=== PATIENT | male | born 1945 | race Caucasian/White ===

== ENCOUNTER 2023-09-07 03:17 | Emergency (ER) | payer OTHER, MEDICARE ==
[~2023-09-07] VITALS: Ht 172.7 cm; Wt 129.6 kg
[~2023-09-07 03:17] MED LIST: ASPI-1071 PO; ATOR20TA66 PO; LISI20TA28 PO; LOP25T PO; OMEP20CA15 PO
[2023-09-07 04:19] LABS: ALBUMIN 3.6 G/DL (3.4-5.0); ANION GAP 11 (8-16); BLOOD UREA NITROGEN 22 MG/DL (7-18); BUN/CREATININE RATIO 14.4 (10.0-20.0); CALCIUM 9.3 MG/DL (8.5-10.1); CHLORIDE 104 MMOL/L (99-107); CREATININE 1.53 MG/DL (0.60-1.10); GLUCOSE 166 MG/DL (70-104); POTASSIUM 3.9 MMOL/L (3.5-5.1); PRO BRAIN NATRIURETIC PEPTIDE 39 PG/ML (0-450); SODIUM 138 MMOL/L (135-145); TOTAL CARBON DIOXIDE 23.4 MMOL/L (24-32); eCRCL 39 ML/MIN; eGFR 44 ML/MIN
[2023-09-07 04:50] LABS: BASOPHILS # (AUTO) 0.1 X10'3 (0-0.2); BASOPHILS % (AUTO) 1.1 % (0-1); EOSINOPHILS # (AUTO) 0.3 X10'3 (0-0.9); EOSINOPHILS % (AUTO) 4.4 % (0-6); HEMATOCRIT 38.5 % (42.0-52.0); LYMPHOCYTES # (AUTO) 1.9 X10'3 (1.1-4.8); LYMPHOCYTES % (AUTO) 32.3 % (21-51); MEAN CORPUSCULAR HEMOGLOBIN 31.3 PG (27.0-31.0); MEAN CORPUSCULAR HGB CONC 33.7 g/dL (33.0-36.5); MEAN CORPUSCULAR VOLUME 92.9 FL (78-98); MEAN PLATELET VOLUME 9.3 FL (7.4-10.4); MONOCYTES # (AUTO) 0.7 X10'3 (0-0.9); MONOCYTES % (AUTO) 11.5 % (2-12); NEUTROPHILS % (AUTO) 50.7 % (42-75); PLATELET COUNT 143 X10'3 (140-440); RED BLOOD COUNT 4.14 X10'6 (4.70-6.10); RED CELL DISTRIBUTION WIDTH 13.7 % (11.5-14.5)
[2023-09-07 04:54] LABS: THYROID STIMULATING HORMONE 6.22 ulU/ml (0.34-4.50)
[2023-09-07 09:52] VITALS: BP 168/74; PULSE 78; RESP 16; TEMP 98; O2SAT 98
== END 2023-09-07 09:54 | disposition home or self-care (01) ==
LOC: ER 03:18
DX: R00.2 Palpitations (principal); I10 Essential (primary) hypertension; K21.9 Gastro-esophageal reflux disease without esophagitis; Z90.49 Acquired absence of other specified parts of digestive tract
CPT/HCPCS: 36415; 80048; 83880; 84443; 84484; 85025; 93005; 99285

== ENCOUNTER 2024-08-25 04:23 | Emergency (ER) | payer OTHER, MEDICARE ==
[~2024-08-25] VITALS: Ht 172.7 cm; Wt 129.6 kg
[2024-08-25] MEDS ORDERED: VALA100031 PO (05:05)
[2024-08-25] MEDS ORDERED: LIDO30CR TOP (05:07)
[2024-08-25 05:18] VITALS: BP 150/90; PULSE 87; RESP 19; TEMP 97.8; O2SAT 100
== END 2024-08-25 05:21 | disposition home or self-care (01) ==
LOC: ER 04:24
DX: B02.9 Zoster without complications (principal); I10 Essential (primary) hypertension; Z90.49 Acquired absence of other specified parts of digestive tract; Z79.82 Long term (current) use of aspirin
CPT/HCPCS: 99283

== ENCOUNTER 2025-01-05 06:49 | Emergency (ER) | payer MEDICARE, OTHER ==
[~2025-01-05] VITALS: Ht 167.6 cm; Wt 128.8 kg
[~2025-01-05 06:49] MED LIST changes: +LIDO30CR TOP; +VALA100031 PO
[2025-01-05 06:50] VITALS: BP 160/76; PULSE 70; TEMP 97.1; O2SAT 95
--- NOTE | 2025-01-05 07:16 | Physician Documentation ---
History of Present Illness ~ Chief Complaint: Knee Pain Stated Complaint: RIGHT LEG DISCOMFORT Time Seen by MD: 07:05 Source: patient Mode of Arrival: POV Exam Limitations: no limitations HPI Chief Complaint: Right knee pain Caveat: None Independent Historians: None History of Present Illness: Patient is a 79-year-old man who injured his right knee yesterday at approximately 11:00 a.m.. He is walking down stairs at home when humerus got to the bottom and his left knee gave out and he heard a loud clap on. Patient's pain is 7/10. Patient's pain is worse with movement. Patient has no some swelling in the right knee. Patient's pain is primarily over the lateral aspect of the right knee. Patient did not fall. There was a railing that he was able to grab a hold of. Patient states that he took Advil yesterday and iced it yesterday Review of systems: All systems were reviewed and are negative except for what is indicated in the history of present illness. Past Medical History: Hypertension, peripheral edema, peripheral neuropathy Past Surgical History: Noncontributory Social History: No tobacco use, no alcohol use, no drug use Medications: Reviewed as documented Nursing Notes Allergies: Reviewed as documented in Nursing Notes Tetanus witin 5 years: No Medication Reconciliation Allergies: Coded Allergies: No Known Allergies (Unverified , 01/05/25) Scheduled Aspirin (Ecotrin*), 1 TAB PO DAILY Atorvastatin Calcium (Atorvastatin Calcium), 40 MG PO DAILY Lidocaine/Prilocaine (Lidocaine-Prilocaine Cream), 1 APPLIC TOP BID Lisinopril (Lisinopril), 1 TAB PO DAILY, (Reported) Metoprolol Tartrate* (Lopressor tablet*), 25 MG PO Q12H Omeprazole (Omeprazole), 1 CAP PO DAILY, (Reported) Valacyclovir HCl (Valacyclovir), 1 TAB PO Q8H Past Medical History Past Medical History: Hypertension, GERD Past Surgical History: appendectomy, cholecystectomy Patient History: FH: heart attack Alcohol Use: None Drug Use: none Lives with: Alone Lives In: Home Occupation: retired Review of Systems All Other Systems at this time: Reviewed and Negative ROS Patient denies any other acute symptoms other than above. All other systems are negative Physical Exam Vital Signs: RN Vital Signs have been reviewed: Yes, Temperature: 97.1, Heart Rate: 70, Respiratory Rate: 16, BP: 160/76, Pulse Oximetry: 95, Weight: 128.750 Oxygen Flow Rate: 0 Pulse Oximetry Reflects: adequate oxygenation Physical Exam General Appearance: No distress HEENT: Normal OP, moist oral mucosa, PERRL, EOMI Neck: supple, normal ROM, trachea midline Pulmonary: No respiratory distress, CTA, BS equal Cardiac: RRR, no murmur, rub or gallop, Extremities: Bilateral lower extremity edema right greater than left, right knee appears larger than the left. Some subtle swelling and possible effusion on the right. Mild decreased range of motion of the right knee. Patient is primarily tender over the right lateral knee and lateral joint line. No tenderness over the fibular head. No medial tibial or femur tenderness. Skin: intact, dry, warm, no rashes Neuro: AAOx3, speech is clear, no focal motor weakness Psych: normal affect, good eye contact, no apparent hallucination, normal speech Progress Results/Orders Results/Orders Orders - ANJEL BUCK MD Knee, Complete (01/05/25 07:00) Completed Orders - ANJEL BUCK MD Knee, Complete (01/05/25 07:00) Ketorolac Trometh 15mg/Ml Vial (Toradol (01/05/25 07:15) Medications Received in ER Medications (Trade) Dose Ordered Sig/Su Route PRN Reason Start Time Stop Time Status Last Admin Dose Admin (Toradol injection) 15 mg ONCE ONCE IM 01/05/25 07:15 01/05/25 07:17 DC 01/05/25 07:24 15 MG Vital Signs 01/05/25 01/05/25 06:50 07:24 Temp 97.1 Pulse 70 Resp 16 16 B/P (MAP) 160/76 Pulse Ox 95 O2 Flow Rate 0 Medical Decision Making Findings Differential diagnosis includes but is not limited to: Meniscus injury, ligamentous injury, tendon injury, fracture Right knee x-ray, four views, indication: Trauma and pain Independent interpretation: Small suprapatellar effusion, no evidence of fractures or dislocations. Emergency department course/medical decision-making: Patient has a right knee injury. Patient likely has a ligamentous injury. No evidence of fracture or dislocation. Patient will be given crutches. Pre scription for [place]. Follow up with primary care doctor referral to Dr. Ratliff. Test results and all of the above reviewed with the patient. Departure Time of Disposition: 07:53 Disposition: 01 HOME / SELF CARE / HOMELESS Impression: Primary Impression: Traumatic effusion of knee joint Condition: Stable Discharge Instructions: Knee Effusion, Knee Sprain, Adult, [id number] Additional Instructions: FOLLOW UP WITH YOUR PRIMARY CARE DOCTOR TO GET A REFERRAL TO DR. RATLIFF [facility]. CONTINUE TO USE ICE PACKS. USE THE KNEE IMMOBILIZER WHEN WALKING IF YOU FIND IT HELPFUL. YOU MAY TAKE ADVIL WITH FOOD AND THE PAIN MEDICATION PRESCRIBED. NO DRIVING WHEN TAKING THE PAIN MEDICATION. Referrals: EDSON RATLIFF MD Prescriptions Hydrocodone Bit/Acetaminophen 5/325 MG ([place] 5/325 MG) 5 Mg/325 Mg Tablet 1 TAB PO TID PRN PRN for pain for 5 Days, #15 TAB Prov: ANJEL BUCK MD 01/05/25 Education Educated: Patient Educated regarding: diagnosis, treatment, need for follow up Signature Scribe Signature: No scribe Attestation: No scribe ANJEL BUCK MD Jan 05, 2025 07:16
[2025-01-05 07:24] VITALS: RESP 16
[2025-01-05] MEDS: ketorolac trometh 15mg/ml vial 15 MG/ML ML IM ONE (07:24)
--- NOTE | 2025-01-05 07:37 | RADIOLOGY REPORT ---
CLINICAL INDICATION: RT.KNEE PAIN TECHNIQUE: DI KNEE, COMP 4 VW MIN Comparison: None FINDINGS/IMPRESSION: : There is no evidence of acute fracture or dislocation. Small suprapatellar effusion. Soft tissues are otherwise unremarkable.
[2025-01-05] MEDS ORDERED: HYDR-3965 PO (08:00)
== END 2025-01-05 08:05 | disposition home or self-care (01) ==
LOC: ER 06:49
DX: M25.461 Effusion, right knee (principal); I10 Essential (primary) hypertension; K21.9 Gastro-esophageal reflux disease without esophagitis; Z90.49 Acquired absence of other specified parts of digestive tract; Z79.82 Long term (current) use of aspirin; X58.XXXA Exposure to other specified factors, initial encounter; Y93.01 Activity, walking, marching and hiking; Y92.89 Other specified places as the place of occurrence of the external cause; Y99.8 Other external cause status
CPT/HCPCS: 29505; 73564; 96372; 99284; J1885